=== PATIENT | female | born 1995 | race Two or more races ===

== ENCOUNTER 2018-07-10 12:02 | Emergency (ER) | payer SELFPAY ==
[2018-07-10 12:13] VITALS: BP 121/76
--- NOTE | 2018-07-10 12:49 | ED Physician Documentation ---
PD HPI MAJOR BURN - Stated complaint Stated Complaint: NAUSEA,HEADACHE,BILAT LEG SWELLING - Chief complaint Chief Complaint: Ext Problem - History obtained from History obtained from: Patient - History of Present Illness Timing - onset: Other (This is a healthy young woman with no possibility of who is here seeking asylum from [place]. A week ago she got stung by jellyfish swimming in the ocean in [place]. Of note I googled this and there was actually quite a large outbreak of jellyfish stings in [place] in the news corresponding with her dates. Some of them were regular jellyfish and some man-o-war. She has worsening spots and swelling to both lower extremities especially the right. Above the legs she is unaffected. She feels fatigued and headachy because of poor sleep due to pain last night. No fevers.) Review of Systems Constitutional: reports: Fatigue. denies: Fever, Chills Cardiac: denies: Chest pain / pressure, Palpitations Respiratory: denies: Dyspnea, Cough PD PAST MEDICAL HISTORY - Past Medical History Past Medical History: No - Past Surgical History Past Surgical History: No - Present Medications Home Medications: Ambulatory Orders Medication Instructions Recorded Confirmed HYDROcod/ACETAM 5/325 [Archie 5/325] 1 - 2 ea PO Q6H PRN #15 tablet 07/10/18 Triamcinolone 0.1% Cream [Kenalog 1 gm TOP BID #2 tube 07/10/18 0.1% Cream] predniSONE [Prednisone] 50 mg PO DAILY #5 tablet 07/10/18 - Allergies Allergies/Adverse Reactions: Allergies Allergy/AdvReac Type Severity Reaction Status Date / Time Penicillins Allergy Nausea Verified 07/10/18 12:13 - Social History Does the pt smoke?: No Smoking Status: Never smoker Does the pt drink ETOH?: No Does the pt have substance abuse?: No - Immunizations Immunizations are current?: Yes PD ED PE NORMAL - Vitals Vital signs reviewed: Yes - General General: Alert and oriented X 3, No acute distress - Extremities Extremities: Other (She has linear sting burrows with some weeping and dermatitis especially on the right leg but also affecting the left leg. Mostly posteriorly from the ankle up to the high calf. The top of the left foot is edematous.) - Neuro Neuro: Alert and oriented X 3, Normal speech Results - Vitals Vitals: Vital Signs - 24 hr 07/10/18 12:10 Temperature 36.6 C Heart Rate 79 Respiratory 16 Rate Blood Pressure 121/76 O2 Saturation 100 Oxygen O2 Source Room air PD MEDICAL DECISION MAKING - ED course ED course: She presents with pretty severe and symptomatic jellyfish sting sustained in the [place] about a week ago. There is no evidence of infection at this point. Presentation is inconsistent with DVT. She is treated with pain medications and both oral and topical steroids. Of note she is seeking asylum from [place], has no finances and no health insurance so the prescriptions were placed on a foundation prescription to go to [facility]. - Sepsis Event Vital Signs: Vital Signs - 24 hr 07/10/18 12:10 Temperature 36.6 C Heart Rate 79 Respiratory 16 Rate Blood Pressure 121/76 O2 Saturation 100 Oxygen O2 Source Room air Departure - Departure Disposition: 01 Home, Self Care Clinical Impression: Jellyfish sting Qualifiers: Encounter type: initial encounter Injury intent: accidental or unintentional Qualified Code(s): T63.621A - Toxic effect of contact with other jellyfish, accidental (unintentional), initial encounter Condition: Good Record reviewed to determine appropriate education?: Yes Instructions: ED Bite Sting Marine Prescriptions: HYDROcod/ACETAM 5/325 [Archie 5/325] 1 - 2 ea PO Q6H PRN #15 tablet PRN Reason: Pain predniSONE [Prednisone] 50 mg PO DAILY #5 tablet Triamcinolone 0.1% Cream [Kenalog 0.1% Cream] 1 gm TOP BID #2 tube Discharge Date/Time: 07/10/18 12:58
== END 2018-07-10 12:58 | disposition home or self-care (01) ==
LOC: ED 12:02
DX: T63.621A Toxic effect of contact with other jellyfish, accidental (unintentional), initial encounter (principal); Y92.89 Other specified places as the place of occurrence of the external cause
CPT/HCPCS: 99283